=== PATIENT | male | born 1985 | race Caucasian/White ===

== ENCOUNTER 2017-08-06 04:58 | Emergency (ER) | payer MEDICAID, OTHER ==
[~2017-08-06] VITALS: Ht 177.8 cm; Wt 190.0 kg
[2017-08-06] MEDS ORDERED: KEP500T PO (06:06)
[2017-08-06] MEDS ORDERED: levetiracetam inj 1,500 MG in normal saline 100ml IV soln 85 ML IV ONE (06:30)
[2017-08-06] MEDS ORDERED: levetiracetam 250mg tablet PO ONE (07:25)
[2017-08-06 07:41] VITALS: BP 123/63
== END 2017-08-06 07:44 | disposition home or self-care (01) ==
LOC: ER 04:58
DX: R56.9 Unspecified convulsions (principal); F12.10 Cannabis abuse, uncomplicated; F11.10 Opioid abuse, uncomplicated; Z56.0 Unemployment, unspecified
CPT/HCPCS: 99283; J1953; J7030

== ENCOUNTER 2017-10-26 05:45 | Emergency (ER) | payer OTHER ==
[~2017-10-26] VITALS: Ht 177.8 cm; Wt 83.0 kg
[2017-10-26 05:45] VITALS: BP 144/100
[~2017-10-26 05:45] MED LIST: KEP500T PO
[2017-10-26] MEDS ORDERED: normal saline 1000ML IV soln IVB ONE (05:55)
== END 2017-10-26 06:03 | disposition left against medical advice (07) ==
LOC: ER 05:45
DX: R56.9 Unspecified convulsions (principal); Z53.21 Procedure and treatment not carried out due to patient leaving prior to being seen by health care provider
CPT/HCPCS: 93005; 99281; 99283